=== PATIENT | female | born 1935 | race Caucasian/White ===

== ENCOUNTER → 2016-08-20 | Outpatient (CLI) | payer MEDICARE, OTHER ==
[~2016-08-20] MED LIST: ARICEPT10 M1 PO; ASPIRIN 81MG TA81 MG PO; ASPIRIN EC81 MG PO; BISOPROLOL PO; CARVEDILOL6.25 MG PO; CELEXA10 M1 PO; DONEPEZIL 10MG10 MG PO; ESTRADIOL1 MG PO; KEPPRA 500 MG500 MG PO; LEVETIRACETAM500 MG PO; LEVOTHROID0.075 MG PO; LEVOTHYROXIN0.088 MG PO; LEVOTHYROXINE0.1 MG PO; LISINOPRIL10 MG PO; MEDROXYPROGEST2.5 MG PO; MELOXICAM7.5 MG PO; OXYBUTYNIN5 MG PO; SEPTRA DS 800 M1 TAB PO; SIMVASTATIN40 MG PO; TYLENOL PM EX-1 EACH PO; VITAMIN B12100 MCG PO; VITAMIN D3400 I1 PO; VITAMIN D400 I1 PO; ZOFRAN4 MG PO; [UNRECOGNIZED DRUG - OTHER] PO
--- NOTE | 2016-08-21 10:07 | RADIOLOGY REPORT PS360 ---
MRI-L-SPINE W/O, MRI-3D RENDERING/MYELOGRAM HISTORY: Low back pain radiating down left leg BACK PAIN ORDERING PHYSICIAN: Rick Bell MD PATIENT AGE: 81 years COMPARISON: None TECHNIQUE: Standard multiplanar multiecho sequences are performed without contrast. 3-D MIP and myelographic images are also rendered and reviewed FINDINGS: Spinal cord ends at T12-L1 level. T10-T11: Degenerative disc disease with bulging disc. T11-T12: Mild concentric bulging disc. There is mild anterior wedge compressive changes of T12 with loss of height anteriorly of approximately 20%. There is some increased T2 signal in this region suggesting that this is an acute finding. Only minimal retropulsion of the posterior superior aspect of T12 without canal stenosis or neural impingement. T12-L1: Mild concentric bulging disc with mild facet hypertrophic change L1-L2: Moderate to severe degenerative disc disease with endplate irregularity and bulging disc with mild facet and ligamentum hypertrophy and mild bilateral lateral recess narrowing. L2-L3: Moderate facet and ligamentum hypertrophy with bilateral lateral recess narrowing. L3-L4: 3 mm anterolisthesis of L3 on L4 with bulging disc along with facet and ligamentum hypertrophy with canal stenosis, bilateral lateral recess narrowing, and mild bilateral foraminal narrowing. L4-L5: 5 mm anterolisthesis of L4 on L5 appears degenerative with degenerative disc disease and bulging disc with moderate facet and ligamentum hypertrophy and moderate to severe canal stenosis both AP and transverse with the transverse dimension of the canal at approximately 6 mm. There is severe bilateral lateral recess and foraminal narrowing greater on the right. L5-S1: Degenerative disc disease with bulging disc with facet hypertrophic change and mild to moderate bilateral foraminal narrowing. Incidental note is made of bilateral renal cysts. IMPRESSION: 1. Abnormal MRI of the lumbar spine with multilevel degenerative disc disease and bulging disc as described at each level above. Please see above for detailed description of each level. 2. Severe canal stenosis at L4-L5 secondary to degenerative spondylolisthesis bulging disc, and facet and ligamentum hypertrophy with severe bilateral foraminal narrowing greater on the right. 3. Canal stenosis L3-L4 with anterolisthesis of L3 along with facet and ligamentum hypertrophy. 4. No extruded herniated disc are evident.
== END ==
LOC: RAD 13:45
DX: M54.5 Low back pain (principal)